=== PATIENT | male | born 1955 | race Caucasian/White ===

== ENCOUNTER 2016-08-23 17:03 | Emergency (ER) | payer BC ==
[2016-08-23 17:21] VITALS: BP 121/72
[2016-08-23] MEDS ORDERED: Indomethacin 25 MG Cap PO ONE (17:43)
--- NOTE | 2016-08-23 17:50 | EDM.PDOC ---
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 Past medical history: As per history of present illness and as reviewed below otherwise noncontributory. Surgical history: As per history of present illness and as reviewed below otherwise noncontributory. Social history: No reported history of drug or alcohol abuse. Family history: As per history of present illness and as reviewed below otherwise noncontributory. Physical exam: HEENT: Atraumatic, normocephalic, pupils reactive, negative for conjunctival pallor or scleral icterus, mucous membranes moist, throat clear, neck supple, nontender, trachea midline. Right pupil is approximately 2 mm versus 3-4 on the left there is no other ophthalmic findings Lungs: Clear to auscultation, breath sounds equal bilaterally, chest nontender. Heart: S1S2, regular, negative for clicks, rubs, or JVD. Abdomen: Soft, nondistended, nontender. Negative for masses or hepatosplenomegaly. Negative for costovertebral tenderness. Pelvis: Stable nontender. Genitourinary: Deferred. Rectal: Deferred. Extremities: Atraumatic, negative for cords or calf pain. Neurovascular unremarkable. Neuro: Awake, alert, oriented. Cranial nerves II through XII unremarkable. Cerebellum unremarkable. Motor and sensory unremarkable throughout. Exam nonfocal. 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 ED EXAM, GENERAL - Physical Exam Exam: See Below (See dictation) Course - Vital Signs Text/Narrative:: Discussed case at length with patient and at this time they will defer all diagnostics I did contact neurology motor and controls tester Dr. Guajardo who will see the patient in the office she recommended indomethacin and discussed other etiologies including hemicranium chronicum. In any case as determined that that is unlikely to be emergent in nature and close follow-up is reasonable and the option of choice per patient and . I did discuss options including transfer to [place] my not but that the diagnostics and disposition may not be much different but could be pursued if they chose they declined Last Recorded V/S: Last Vital Signs Temp 36.6 C 08/23/16 17:18 Pulse 85 08/23/16 17:18 Resp 16 08/23/16 17:18 BP 121/72 08/23/16 17:18 Pulse Ox 96 08/23/16 17:18 - Orders/Labs/Meds Meds: Medications Discontinued Medications Generic Name Dose Route Start Last Admin Trade Name Freq PRN Reason Stop Dose Admin Indomethacin 50 mg 08/23/16 17:43 Indocin PO 08/23/16 17:44 ONETIME ONE Departure - Departure Time of Disposition: 17:52 Disposition: Home, Self-Care 01 Condition: Good Clinical Impression: Cephalgia, Pupillary miosis - Discharge Information Forms: ED Department Discharge Additional Instructions: The following information is given to patients seen in the emergency department who are being discharged to home. This information is to outline your options for follow-up care. We provide all patients seen in our emergency department with a follow-up referral. The need for follow-up, as well as the timing and circumstances, are variable depending upon the specifics of your emergency department visit. If you don't have a primary care physician on staff, we will provide you with a referral. We always advise you to contact your personal physician following an emergency department visit to inform them of the circumstance of the visit and for follow-up with them and/or the need for any referrals to a consulting specialist. The emergency department will also refer you to a specialist when appropriate. This referral assures that you have the opportunity for followup care with a specialist. All of these measure are taken in an effort to provide you with optimal care, which includes your followup. Under all circumstances we always encourage you to contact your private physician who remains a resource for coordinating your care. When calling for followup care, please make the office aware that this follow-up is from your recent emergency room visit. If for any reason you are refused follow-up, please contact the [facility] emergency department at and asked to speak to the emergency department charge nurse. [facility] - Neurology Professional Building [address] [place] [address], [address] [place] [address] Color schedule appointment above return as needed as discussed
== END 2016-08-23 18:00 | disposition home or self-care (01) ==
LOC: MW.ED 17:03
DX: R51 Headache (principal); H57.03 Miosis
CPT/HCPCS: 99284; A9270; 99283